=== PATIENT | male | born 1965 | race Caucasian/White ===

== ENCOUNTER 2016-11-04 00:43 | Emergency (ER) | payer SELFPAY ==
[2016-11-04 00:51] VITALS: TEMP 98.2
[2016-11-04] MEDS ORDERED: VANCOMYCIN HCL/NORMAL SALINE 250 ML IV ONE (01:03)
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
[2016-11-04] MEDS ORDERED: TDAP ADULT 0.5 ML INJ (BOOSTRIX) IM ONE (02:00)
[2016-11-04 03:21] VITALS: BP 109/66; PULSE 81; RESP 16; O2SAT 96
== END 2016-11-04 03:22 | disposition home or self-care (01) ==
DX: L03.115 Cellulitis of right lower limb (principal); F17.200 Nicotine dependence, unspecified, uncomplicated; Z23 Encounter for immunization
CPT/HCPCS: 96365; J3370